=== PATIENT | male | born 1945 | race Caucasian/White ===

== ENCOUNTER → 2018-02-05 05:00 | Outpatient (REF) | payer MEDICARE, SELFPAY ==
[2018-02-05 08:27] LABS: Valproic Acid (Depakene) Level 64 ug/mL (50-100)
== END ==
LOC: OLS.ACW400 05:00
PROVIDERS: Visit Provider Family Medicine
DX: I10 Essential (primary) hypertension (principal); Z79.899 Other long term (current) drug therapy; E55.9 Vitamin D deficiency, unspecified
CPT/HCPCS: 36415; 80164; 82306

== ENCOUNTER → 2018-05-27 05:00 | Outpatient (REF) | payer MEDICARE, SELFPAY ==
[2018-05-27 10:25] LABS: Hematocrit 37.3 % (40-54); Mean Corp Hgb Conc 34.9 g/gl (32-36); Mean Corpuscular Hgb 33.9 pg (27.0-32.0); Mean Corpuscular Volume 97.4 fL (80-94); Mean Platelet Vol. 10.6 fl (6.2-12.0); Platelet Count 137 K/mm3 (150-450); RBC Distribution Width CV 13.3 % (11.6-14.6); RBC Distribution Width SD 46.1 fl (35.1-43.9); Red Blood Count 3.83 M/mm3 (4.6-6.2); White Blood Count 6.1 K/mm3 (4.4-11.0)
[2018-05-27 10:34] LABS: Scan Indicated on CBC? Y/N NO
[2018-05-27 10:42] LABS: Anion Gap 7 (5-15); BUN 16 mg/dL (7-18); BUN/Creat Ratio 16.7 RATIO (10-20); Calcium,Total 8.3 mg/dL (8.5-10.1); Chloride 105 mmol/L (98-107); Creatinine, Serum 0.96 mg/dL (0.70-1.30); EST Glomerular Filtration Rate 81 mL/min (>60); Est Glom Filt Rate - Afr Amer 98 mL/min (>60); Glucose 62 mg/dL (74-106); Magnesium 2.3 mg/dL (1.6-2.6); Potassium 4.1 mmol/L (3.5-5.1); Sodium Level 143 mmol/L (136-145); Thyroid Stim Hormone (TSH) 1.56 uIU/mL (0.358-3.74)
== END ==
LOC: OLS.ACW400 05:00
PROVIDERS: Visit Provider Family Medicine
DX: G30.1 Alzheimer's disease with late onset (principal); F02.81 Dementia in other diseases classified elsewhere, unspecified severity, with behavioral disturbance; R41.841 Cognitive communication deficit; I10 Essential (primary) hypertension
CPT/HCPCS: 36415; 80048; 83735; 84443; 85027

== ENCOUNTER → 2018-06-03 05:00 | Outpatient (REF) | payer MEDICARE, SELFPAY | LOC: OLS.ACW400 05:00 | PROVIDERS: Visit Provider Family Medicine | DX: G30.1 Alzheimer's disease with late onset (principal); F02.81 Dementia in other diseases classified elsewhere, unspecified severity, with behavioral disturbance; R41.841 Cognitive communication deficit; I10 Essential (primary) hypertension | CPT/HCPCS: 36415; 82533 ==